=== PATIENT | female | born 1990 | race Caucasian/White ===

== ENCOUNTER 2017-02-03 17:43 | Emergency (ER) | payer OTHER ==
--- NOTE | 2017-02-03 19:25 | EDM.PDOC ---
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 She feels it is misplaced and that the strings are longer than they should be. She says her could feel her IUD during intercourse last evening. She has had abnormal vaginal bleeding for the past couple months and did notify her PCP in [place]. She denies feeling lightheaded or dizzy. No abnormal vaginal discharge, fever or chills. 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 - Infectious Disease History Infectious Disease History: Reports: Chicken Pox - Past Surgical History Other Oncologic Surgeries/Procedures: POS HPV Social & Family History - Family History Family Medical History: Unobtainable - Tobacco Use Smoking Status *Q: Former Smoker Years of Tobacco use: 10 Packs/Tins Daily: 0.3 Used Tobacco, but Quit: Yes Month Tobacco Last Used: 2014 Second Hand Smoke Exposure: Yes - Caffeine Use Caffeine Use: Reports: Coffee, Energy Drinks, Soda - Recreational Drug Use Recreational Drug Use: No ED ROS GENERAL - Review of Systems Review Of Systems: See Below Constitutional: Reports: No Symptoms. Denies: Fever, Chills GI/Abdominal: Reports: No Symptoms. Denies: Abdominal Pain : Reports: Irregular Menses ED EXAM, RENAL/ - Physical Exam Exam: See Below Exam Limited By: No Limitations General Appearance: Alert, WD/WN, No Apparent Distress Respiratory/Chest: No Respiratory Distress, Lungs Clear Cardiovascular: Regular Rate, Rhythm GI/Abdominal: Normal Bowel Sounds, Soft, Non-Tender (Female) Exam: Normal External Exam, Normal Speculum Exam, Vaginal Bleeding ( moderate ), Other (strings easily visualized. The IUD was easily removed. The IUD was likely at the base of the cervix. Patient tolerated the procedure well. IUD is intact. No abnormal lesions to the vaginal canal. ). No: Vaginal Discharge, Vaginal Lesions, Vaginal Tears Course - Vital Signs Last Recorded V/S: Last Vital Signs Temp 97.8 F 02/03/17 18:16 Pulse 69 02/03/17 18:16 Resp 16 02/03/17 18:16 BP 108/64 02/03/17 18:16 Pulse Ox - Re-Assessments/Exams Free Text/Narrative Re-Assessment/Exam: Patient is in the process of moving to [place] from [place]. She was instructed to establish care in [facility] or at our clinic for f/u and alternate family planning options. She was instructed to use alternative methods (condoms, abstinence) until established on a different family planning method. Discharge instructions as documented. Departure - Departure Time of Disposition: 19:23 Disposition: Home, Self-Care 01 Condition: Good Clinical Impression: Encounter for IUD removal, Dysfunctional uterine bleeding - Discharge Information Referrals: PCP,Not In Area [Primary Care Provider] - Forms: ED Department Discharge Additional Instructions: Follow-up at [facility] or [facility] to establish care with a primary care provider. Our clinic number is [phone]. Recommend Cydni Franco NP or Tamara Vogt PAC Return to ER with any concerns
== END 2017-02-03 19:35 | disposition home or self-care (01) ==
LOC: JD.ED 17:43
DX: Z30.432 Encounter for removal of intrauterine contraceptive device (principal); N93.8 Other specified abnormal uterine and vaginal bleeding; Z87.891 Personal history of nicotine dependence
CPT/HCPCS: 99283; 99284

== ENCOUNTER 2020-02-18 16:41 | Emergency (ER) | payer BC, OTHER ==
[2020-02-18] MEDS ORDERED: Lidocaine 1% 10 ML MDV INJECT ONE (17:29)
[2020-02-18] MEDS ORDERED: Diphtheria,Pertussis(Acell),Tetanus Vaccine 0.5 ML Syringe IM ONE (17:33)
--- NOTE | 2020-02-18 17:49 | EDM.PDOC ---
ED HPI GENERAL MEDICAL PROBLEM - General Chief Complaint: Laceration Stated Complaint: LT HAND FINGER LAC Time Seen by Provider: 02/18/20 17:30 Source of Information: Reports: Patient, RN Notes Reviewed History Limitations: Reports: No Limitations - History of Present Illness INITIAL COMMENTS - FREE TEXT/NARRATIVE: Patient is a 29-year-old female presenting to the emergency department with complaints of a laceration to the pad of her left index finger. States she was cleaning the refrigerator and swiped her hand across a piece of broken glass that she did not see. She is unsure when her last tetanus vaccination was. Left Finger-Index Pain Score (Numeric/FACES): 6 - Related Data Allergies Allergy/AdvReac Type Severity Reaction Status Date / Time No Known Allergies Allergy Verified 02/18/20 16:56 Home Meds: Home Meds . 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 - Infectious Disease History Infectious Disease History: Reports: Chicken Pox - Past Surgical History Other Oncologic Surgeries/Procedures: POS HPV Social & Family History - Family History Family Medical History: Unobtainable - Tobacco Use Tobacco Use Status *Q: Never Tobacco User Second Hand Smoke Exposure: No - Caffeine Use Caffeine Use: Reports: Coffee - Recreational Drug Use Recreational Drug Use: No ED ROS GENERAL - Review of Systems Review Of Systems: Comprehensive ROS is negative, except as noted in HPI. ED EXAM, SKIN/RASH Exam: See Below Exam Limited By: No Limitations General Appearance: Alert, WD/WN, No Apparent Distress Respiratory/Chest: No Respiratory Distress, Lungs Clear, Normal Breath Sounds, No Accessory Muscle Use, Chest Non-Tender Cardiovascular: Normal Peripheral Pulses, Regular Rate, Rhythm, No Edema, No Gallop, No JVD, No Murmur, No Rub Neurological: Alert, Oriented, CN II-XII Intact, Normal Cognition, Normal Gait, Normal Reflexes, No Motor/Sensory Deficits Skin: Other (2 cm gaping laceration to the pad of the left index finger. Finger has full strength to flexion and extension.) ED SKIN PROCEDURES - Laceration/Wound Repair Left Ventral Digit - 2nd (Index) Appearance: Subcutaneous Distal NVT: Neuro & Vascular Intact, No Tendon Injury Anesthetic Type: Local Local Anesthesia - Lidocaine (Xylocaine): 1% Plain Local Anesthetic Volume: 1cc Skin Prep: Chlorhexidine (Hibiciens), Providone-Iodine (Betadine), Saline, Sterile Drape Exploration/Debridement/Repair: Wound Explored, No Foreign Material Found Closed with: Sutures Lac/Wound length In cm: 2 Suture Size: 4-0 # of Sutures: 4 Suture Type: Nylon Sterile Dressing Applied: Nurse Tetanus Status Addressed: Yes Complications: No Course - Vital Signs Last Recorded V/S: Last Vital Signs Temp 97.4 F 02/18/20 16:53 Pulse 82 02/18/20 16:53 Resp 16 02/18/20 16:53 BP 121/75 02/18/20 16:53 Pulse Ox 98 02/18/20 16:53 - Orders/Labs/Meds Orders: Active Orders 24 hr Category Date Time Status Vaccines to be Administered [RC] PER UNIT ROUTINE Care 02/18/20 17:33 Ordered Meds: Medications Discontinued Medications Generic Name Dose Route Start Last Admin Trade Name Freq PRN Reason Stop Dose Admin Diphtheria/Tetanus/Acell Pertussis 0.5 ml 02/18/20 17:33 Adacel IM 02/18/20 17:34 .ONCE ONE Lidocaine HCl 10 ml 02/18/20 17:29 02/18/20 17:35 Xylocaine 1% INJECT 02/18/20 17:30 10 ml ONETIME ONE Administration Departure - Departure Time of Disposition: 17:48 Disposition: Home, Self-Care 01 Condition: Good Clinical Impression: Laceration - Discharge Information *PRESCRIPTION DRUG MONITORING PROGRAM REVIEWED*: No *COPY OF PRESCRIPTION DRUG MONITORING REPORT IN PATIENT VIKTORIYA: No Instructions: Laceration Care, Adult, [id number] Referrals: PCP,None [Primary Care Provider] - Additional Instructions: You were seen in the emergency department today for a laceration to your left index finger. The wound was cleansed and closed with 4 sutures. These should stay intact for 10 days. After that time they may be removed in the clinic by a nurse. Keep the wound clean and dry. Wash with normal soap and water twice daily. Do not submerge the wound in water. Watch for signs of infection including increased redness, swelling, or purulent drainage. If these should occur, you should be seen either in the clinic or in the emergency department as antibiotic treatment may be needed. Return to the ER as needed. Sepsis Event Note (ED) - Evaluation Sepsis Screening Result: No Definite Risk - Focused Exam Vital Signs: Vital Signs Temp Pulse Resp BP Pulse Ox 02/18/20 16:53 97.4 F 82 16 121/75 98 - My Orders Last 24 Hours: My Active Orders 02/18/20 17:33 Vaccines to be Administered [RC] PER UNIT ROUTINE - Assessment/Plan Last 24 Hours: My Active Orders 02/18/20 17:33 Vaccines to be Administered [RC] PER UNIT ROUTINE
== END 2020-02-18 18:00 | disposition home or self-care (01) ==
LOC: JD.ED 16:41
DX: S61.211A Laceration without foreign body of left index finger without damage to nail, initial encounter (principal); Z23 Encounter for immunization; W25.XXXA Contact with sharp glass, initial encounter
CPT/HCPCS: 12001; 90471; 90715; 99282; J2001

== ENCOUNTER 2020-04-19 14:34 | Emergency (ER) | payer BC ==
--- NOTE | 2020-04-19 15:33 | EDM.PDOC ---
ED HPI GENERAL MEDICAL PROBLEM - General Chief Complaint: Chest Pain Stated Complaint: CHEST PAIN/SOB/ANXIETY Time Seen by Provider: 04/19/20 15:12 Source of Information: Reports: Patient, RN Notes Reviewed - History of Present Illness INITIAL COMMENTS - FREE TEXT/NARRATIVE: 29 yr old female with ant chest discomfort that started yesterday, worse today. Pain is mildly worse with deep breathing. No fever, very occasional cough. No other unusual sx. No abd pain. No hx of underlying health problems. She does not smoke. Right Upper Chest Pain Score (Numeric/FACES): 4 - Related Data Allergies Allergy/AdvReac Type Severity Reaction Status Date / Time No Known Allergies Allergy Verified 04/19/20 14:47 Home Meds: Home Meds . 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 - Infectious Disease History Infectious Disease History: Reports: Chicken Pox - Past Surgical History Female Surgical History: Reports: Other (See Below) Other Female Surgeries/Procedures: tubes removed Other Oncologic Surgeries/Procedures: POS HPV Social & Family History - Family History Family Medical History: Unobtainable - Tobacco Use Tobacco Use Status *Q: Never Tobacco User Second Hand Smoke Exposure: No - Caffeine Use Caffeine Use: Reports: None - Recreational Drug Use Recreational Drug Use: No ED ROS GENERAL - Review of Systems Review Of Systems: See Below Constitutional: Reports: Chills. Denies: Fever HEENT: Denies: Rhinitis, Throat Pain Respiratory: Reports: Cough (cough) Cardiovascular: Reports: Chest Pain GI/Abdominal: Denies: Abdominal Pain, Diarrhea, Nausea, Vomiting Musculoskeletal: Denies: Shoulder Pain, Arm Pain, Back Pain Skin: Reports: No Symptoms Neurological: Reports: No Symptoms ED EXAM, GENERAL - Physical Exam Exam: See Below General Appearance: Alert, No Apparent Distress Head: Atraumatic Neck: Supple Respiratory/Chest: No Respiratory Distress, Lungs Clear, Normal Breath Sounds, Other (she is tender R sternal border) Cardiovascular: Regular Rate, Rhythm GI/Abdominal: Soft, Non-Tender Extremities: Normal Inspection. No: Pedal Edema, Leg Pain, Increased Warmth Neurological: Alert, Oriented, No Motor/Sensory Deficits Skin Exam: Warm, Dry, Normal Color #1 Interpretation EKG Date: 04/19/20 [place]: Normal P-Wave: Present QRS: Normal ST-T: Normal Course - Vital Signs Last Recorded V/S: Last Vital Signs Temp 98.4 F 04/19/20 14:45 Pulse 84 04/19/20 14:45 Resp 16 04/19/20 14:45 BP 135/76 04/19/20 14:45 Pulse Ox 97 04/19/20 14:45 - Orders/Labs/Meds Orders: Active Orders 24 hr Category Date Time Status EKG 12 Lead [EKG Documentation Completion] [RC] STAT Care 04/19/20 15:14 Active CORONAVIRUS COVID-19 MYRNA [MOLEC] Stat Lab 04/19/20 15:35 Ordered - Re-Assessments/Exams Free Text/Narrative Re-Assessment/Exam: 04/19/20 15:37 EKG nl. She has significant R sternal border chest wall tenderness. sat 99 to 100 % at time of exam. No underlying health issues. Will check covid screen to go to [facility]. Departure - Departure Time of Disposition: 15:38 Disposition: Home, Self-Care 01 Condition: Fair Clinical Impression: Costochondral chest pain Referrals: PCP,None [Primary Care Provider] - Forms: ED Department Discharge Additional Instructions: Your EKG is totally normal. Your cardiac evaluation is normal. The inflamation of your R sternal border should resolve over the next few days. Ibuprofen 600 mg 3 times daily or aleve 2 to 3 times daily will help the pain and help the inflamation resolve more quickly. Covid screen has been collected and will be sent to the [facility] lab. Self isolate until you get results of the covid screen. We will call you in 2 to 3 days when those results become available. Return to ED as needed if symptoms worsening in any way. Sepsis Event Note (ED) - Evaluation Sepsis Screening Result: No Definite Risk - Focused Exam Vital Signs: Vital Signs Temp Pulse Resp BP Pulse Ox 04/19/20 14:45 98.4 F 84 16 135/76 97 - My Orders Last 24 Hours: My Active Orders 04/19/20 15:14 EKG 12 Lead [EKG Documentation Completion] [RC] STAT 04/19/20 15:35 CORONAVIRUS COVID-19 MYRNA [MOLEC] Stat - Assessment/Plan Last 24 Hours: My Active Orders 04/19/20 15:14 EKG 12 Lead [EKG Documentation Completion] [RC] STAT 04/19/20 15:35 CORONAVIRUS COVID-19 MYRNA [MOLEC] Stat
== END 2020-04-19 16:03 | disposition home or self-care (01) ==
LOC: JD.ED 14:34
DX: R07.1 Chest pain on breathing (principal); Z20.822 Contact with and (suspected) exposure to COVID-19
CPT/HCPCS: 93010; 99283; 99285-25; U0002

== ENCOUNTER 2020-09-20 15:48 | Emergency (ER) | payer BC ==
[2020-09-20] MEDS ORDERED: Lidocaine/EPINEPHrine/Tetracaine Soln 1 ML TOP ONE (16:08)
--- NOTE | 2020-09-20 16:26 | EDM.PDOC ---
ED HPI GENERAL MEDICAL PROBLEM - General Chief Complaint: Upper Extremity Injury/Pain Stated Complaint: R HAND MIDDLE FINGER INFECTION Time Seen by Provider: 09/20/20 15:56 Source of Information: Reports: Patient, RN Notes Reviewed History Limitations: Reports: No Limitations - History of Present Illness INITIAL COMMENTS - FREE TEXT/NARRATIVE: Patient is a 30-year-old female who presents to the ER for right middle finger infection. Notes that she developed a blister on the posterior aspect of the patient's right middle finger, near the PIP joint, and she popped it earlier this week. She went to the clinic, as there was some associated redness. She was given a topical antibiotic and sent home with conservative recommendations. Patient notes that she has been using the topical antibiotic ointment but nothing seems to be helping, the redness, swelling and pain seem to be spreading. She went back to the clinic yesterday, and they again did not do much for her and told her to come back on Tuesday if it had worsened. She presents today due to increasing pain, swelling at the joint space, states that she can even move her middle finger much at all due to the swelling. She has had no fevers or chills, cough/shortness of breath, nausea/vomiting/diarrhea, there are no red streaks up her arm at this time. She has not been using any sort of Tylenol ibuprofen prior to coming to the ER. 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 - Infectious Disease History Infectious Disease History: Reports: Chicken Pox - Past Surgical History Female Surgical History: Reports: Other (See Below) Other Female Surgeries/Procedures: tubes removed Other Oncologic Surgeries/Procedures: POS HPV Social & Family History - Family History Family Medical History: Unobtainable - Tobacco Use Tobacco Use Status *Q: Never Tobacco User - Caffeine Use Caffeine Use: Reports: None - Recreational Drug Use Recreational Drug Use: No Review of Systems - Review of Systems Review Of Systems: Comprehensive ROS is negative, except as noted in HPI. ED EXAM, GENERAL - Physical Exam Exam: See Below Exam Limited By: No Limitations General Appearance: Alert, WD/WN, No Apparent Distress Respiratory/Chest: No Respiratory Distress, Lungs Clear, Normal Breath Sounds, No Accessory Muscle Use, Chest Non-Tender Cardiovascular: Normal Peripheral Pulses, Regular Rate, Rhythm, No Edema Peripheral Pulses: 2+: Radial (L), Radial (R) Extremities: Normal Capillary Refill, Limited Range of Motion (of right middle finger at the PIP d/t swelling/pain) Neurological: Alert, Oriented, Normal Cognition, No Motor/Sensory Deficits Psychiatric: Normal Affect, Normal Mood Skin Exam: Warm, Dry, Intact, Normal Color, No Rash ED TRAUMA EXTREMITY PROCEDURES - I&D Site: R posterior middle finger near PIP joint Skin Prep: Chlorhexidine (Hibiciens) Local Anesthesia: Lidocaine: Other (LET) Area Incised With: 11 Blade Drainage: Purulent, Small Amount Probed to Break Up Loculations: No Sterile Dressing: Adhesive Dressing Complications: No Course - Vital Signs Last Recorded V/S: Last Vital Signs Temp 97.7 F 09/20/20 15:54 Pulse 71 09/20/20 15:54 Resp 13 09/20/20 15:54 BP 111/67 09/20/20 15:54 Pulse Ox 100 09/20/20 15:54 - Orders/Labs/Meds Meds: Medications Discontinued Medications Generic Name Dose Route Start Last Admin Trade Name Freq PRN Reason Stop Dose Admin Lidocaine/Tetracaine 1 ml 09/20/20 16:08 09/20/20 16:12 Lidocaine/Epinephrine/Tetracaine Soln 1 Ml TOP 09/20/20 16:09 1 ml ONETIME ONE Administration Departure - Departure Time of Disposition: 16:24 Disposition: Home, Self-Care 01 Condition: Good Clinical Impression: Infection of finger - Discharge Information *PRESCRIPTION DRUG MONITORING PROGRAM REVIEWED*: Yes *COPY OF PRESCRIPTION DRUG MONITORING REPORT IN PATIENT VIKTORIYA: No Prescriptions: Hydrocodone/Acetaminophen [Hydrocodone-Acetamin 5-325 mg] 1 each PO Q6H PRN #12 tablet PRN Reason: Pain Doxycycline [Vibramycin] 100 mg PO BID 7 Days #14 tab Instructions: Cellulitis, Adult, [id number] Referrals: PCP,None [Primary Care Provider] - Forms: ED Department Discharge Additional Instructions: You were evaluated in the ER today regarding a suspected skin infection. It does appear that you have a cellulitis/abscess. It was incised and drained, to allow healing from within. You were given an antibiotic, doxycycline 100 mg please take as prescribed until the course is done or told otherwise by different provider. Please note that this antibiotic will take at least 48 hours to start working appropriately. This antibiotic can cause some sun sensitivity, so here to be outside, please utilize sunscreen judiciously. You may try to use heat/ice packs to the area to help reduce pain/swelling. You may take 500 mg Tylenol or 600 mg ibuprofen every 6 hours as needed for further pain relief. Do not exceed 4000 mg Tylenol or 3200 mg ibuprofen in a 24-hour time span. You were given a prescription for a strong pain medication, hydrocodone/acetaminophen 5/325 mg, please take 1 tab every 6 hours as needed for pain not relieved by Tylenol or ibuprofen alone. Please note this medication does contain Tylenol in it, so do not take more than 4000 mg in a 24- hour time span. These medications can be addictive, so please take as few as possible to achieve adequate pain control. These meds can also be quite constipating, recommend that you increase your oral fluid intake and take a stool softener like MiraLAX while taking these medications. Do not drive while taking this medication. This medication was electronically [facility] to the [place] [facility]. Please return to the ER at any time if your symptoms change or worsen. Sepsis Event Note (ED) - Evaluation Sepsis Screening Result: No Definite Risk - Focused Exam Vital Signs: Vital Signs Temp Pulse Resp BP Pulse Ox 09/20/20 15:54 97.7 F 71 13 111/67 100
== END 2020-09-20 16:39 | disposition home or self-care (01) ==
LOC: JD.ED 15:48
DX: L08.9 Local infection of the skin and subcutaneous tissue, unspecified (principal)
CPT/HCPCS: 10060; 26010; 99282-25; 99283